=== PATIENT | male | born 1995 | race Two or more races ===

== ENCOUNTER 2022-07-05 06:31 | Emergency (ER) | payer SELFPAY ==
[~2022-07-05] VITALS: Ht 177.8 cm; Wt 59.0 kg
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
[2022-07-05] MEDS ORDERED: diphenhydrAMINE HCL 50 MG/ML VIAL ONE (06:39)
[2022-07-05] MEDS ORDERED: LORAZEPAM INJ 2 MG/ML VIAL ONE (06:39)
[2022-07-05] MEDS ORDERED: HALOPERIDOL LACTATE INJ 5 MG/ML VIAL ONE (06:39)
--- NOTE | 2022-07-05 06:55 | NUR ---
PT STILL AGGITATED AND AGRESSIVE. EXERCISE PLANNER NOT ABLE TO DRAW BLOOD AT THIS TIME; WILL REATTEMPT LATER. WILL COLLECT URINE LATER.
[2022-07-05] MEDS ORDERED: HALOPERIDOL LACTATE INJ 5 MG/ML VIAL IM ONE (07:00)
[2022-07-05] MEDS ORDERED: diphenhydrAMINE HCL 50 MG/ML VIAL IM ONE (07:00)
[2022-07-05] MEDS ORDERED: LORAZEPAM INJ 2 MG/ML VIAL IM ONE (07:00)
--- NOTE | 2022-07-05 07:03 | NUR ---
COVID ANTIGEN SWAB COLLECTED AND SENT TO LAB
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
[2022-07-05] MEDS ORDERED: TDAP [DIPH/PERTUSSIS/TET] 0.5 ML VIAL IM ONE ×2 (07:07→07:30)
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
[2022-07-05 08:14] LABS: BILIRUBIN,URINE NEGATIVE (NEGATIVE); COLOR,URINE YELLOW (YELLOW); LEUKOCYTE ESTERASE ,URINE NEGATIVE (NEGATIVE); NITRITE, URINE NEGATIVE (NEGATIVE); PH,URINE 5.5 (5.0-8.0); PROTEIN,URINE 100 mg/dl (NEGATIVE); UGLUCOSE NEGATIVE (NEGATIVE); UROBILINOGEN,URINE 0.2 EU/dL (0.2)
[2022-07-05 08:15] LABS: BASOPHILS % (AUTO) 0.9 % (0.0-2.0); HEMATOCRIT 38 % (39-51); HEMOGLOBIN 12.6 g/dL (13.5-17.5); LYMPHOCYTES # (AUTO) 1.1 K/uL (0.8-4.8); LYMPHOCYTES % (AUTO) 15.6 % (20.0-44.0); MEAN CORPUSCULAR HGB CONC 33 g/dl (31.0-36.0); MEAN CORPUSCULAR VOLUME 88 fL (80-96); MONOCYTES % (AUTO) 8.8 % (2.0-12.0); NEUTROPHILS # (AUTO) 5.4 K/uL (1.8-8.9); NEUTROPHILS % (AUTO) 73.7 % (43.0-81.0); PLATELET COUNT (AUTO) 241 K/uL (150-450); WHITE BLOOD COUNT (AUTO) 7.3 K/uL (4.3-11.0)
[2022-07-05 08:16] LABS: BASOPHILS # (AUTO) 0.1 K/uL (0.0-0.2); MONOCYTES # (AUTO) 0.6 K/uL (0.1-1.30)
--- NOTE | 2022-07-05 08:17 | NUR ---
URINE COLLECTED AND SENT
[2022-07-05 08:40] LABS: BACTERIA,URINE Few /HPF (None Seen); RBC,URINE 21-50 /HPF (0-2); SQUAMOUS EPITHELIAL CELL,UR Rare /HPF (None Seen)
[2022-07-05 08:41] LABS: ALANINE AMINOTRANSFERASE 40 U/L (12-78); ALBUMIN 3.3 g/dL (3.4-5.0); ALCOHOL, BLOOD < 3 mg/dL (0-0); ALKALINE PHOSPHATASE 61 U/L (46-116); ASPARTATE AMINOTRANSFERASE 34 U/L (15-37); BILIRUBIN,DIRECT 0.1 mg/dL (0.0-0.2); BILIRUBIN,TOTAL 0.5 mg/dL (0.2-1.0); CALCIUM, SERUM 7.8 mg/dL (8.5-10.1); CARBON DIOXIDE 27 mmol/L (21-32); CHLORIDE 107 mmol/L (98-107); CREATININE 1.2 mg/dL (0.6-1.3); GLUCOSE 94 mg/dL (74-106); POTASSIUM 3.2 mmol/L (3.5-5.1); SODIUM SERUM 141 mmol/L (136-145); TOTAL PROTEIN, SERUM 6.6 g/dL (6.4-8.2); UREA NITROGEN, BLOOD 7 mg/dL (7-18)
[2022-07-05 09:14] LABS: ACETAMINOPHEN 0 ug/ml (10-30)
--- NOTE | 2022-07-05 14:06 | NUR ---
Note sukikay in ED - 07/05/22 at 1409 by OVIDIO SS consult requested for pt. on a hold. Pt. is a 27-year-old male who was admitted to [facility] on 07/05/2022 by [employer]. Per hold, pt. was talking to himseld
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
--- NOTE | 2022-07-05 18:43 | NUR ---
[employer] WILDLIFE TRAPPER (Pinky) here to see patient
--- NOTE | 2022-07-05 20:11 | NUR ---
Patient discharged to home in stable condition. Written and verbal after care instructions given. Patient verbalizes understanding of instruction.
[2022-07-05 20:12] VITALS: BP 135/70
== END 2022-07-05 20:12 | disposition home or self-care (01) ==
LOC: ER 06:36 → EDBD 06:36 → ER 20:12
DX: F29 Unspecified psychosis not due to a substance or known physiological condition (principal); S01.312A Laceration without foreign body of left ear, initial encounter; X58.XXXA Exposure to other specified factors, initial encounter; Y92.89 Other specified places as the place of occurrence of the external cause; F15.10 Other stimulant abuse, uncomplicated; Z53.29 Procedure and treatment not carried out because of patient's decision for other reasons; Z20.822 Contact with and (suspected) exposure to COVID-19
CPT/HCPCS: 99291; 96372 ×2; 90471; 90715; 85025; 80048; 80076; 81001; 36415; 87426; 80143; 80320; 80307; J2060; J1200; J1630; C9803; G0480